=== PATIENT | male | born 2000 | race Caucasian/White ===

== ENCOUNTER 2021-09-25 09:40 | Emergency (ER) | payer OTHER ==
[~2021-09-25] VITALS: Ht 180.3 cm; Wt 83.9 kg
[2021-09-25 10:04] VITALS: BP 136/75
[2021-09-25] MEDS ORDERED: DOXYCYCLINE 10100 MG PO (10:23)
[2021-09-25] MEDS ORDERED: SUPRAX400 M1 PO (10:23)
== END 2021-09-25 10:37 | disposition home or self-care (01) ==
LOC: M.ERS 09:40
DX: Z88.0 Allergy status to penicillin (principal); Z20.2 Contact with and (suspected) exposure to infections with a predominantly sexual mode of transmission